=== PATIENT | male | born 1945 | race Caucasian/White ===

== ENCOUNTER 2017-08-23 14:30 | Inpatient (IN) | payer MEDICARE ==
[~2017-08-23] VITALS: Ht 167.6 cm; Wt 98.1 kg
--- NOTE | ~2017-08-23 | CON ---
[place], [place] REPORT OF CONSULTATION NAME: KENDY KAYE UNIT #: [id number] ROOM: 517 DOCTOR: FINN ONEAL MD BIRTHDATE: [birth year] DOS: 08/23/2017 HISTORY OF PRESENT ILLNESS: This is a 72-year-old -[place] man with a history of morbid obesity, coronary artery disease. I had deployed a stent in him in year 1999 at [facility]. Over the last many years, he has seen Dr. Lucas and I believe he has had a few stents deployed. He has some degree of dementia, diabetes mellitus, hyperlipidemia, essential hypertension, anemia and has had injury to the right shoulder from a fall a year ago. He was admitted to the hospital because of chest pain. He apparently has left shoulder pain that has bothered him for quite some time. This feeling radiates across the anterior part of the chest and it occurs infrequently and often at rest, sometimes with exertion. He claims that when he takes nitroglycerin sublingually, the feeling pretty much goes away. Duration is only in terms of 10-20 minutes. There is no accompanying sweating, nausea, breathing difficulty, dizziness or loss of consciousness. He has not had any swelling in the lower extremities. He quit smoking in the 1999, does not use alcoholic beverages. HOME MEDICATIONS: Include , clopidogrel, donepezil, insulin aspart and insulin glargine, Imdur 30 q.a.m., lisinopril 1.25 mg daily, Namenda 10 mg b.i.d., metoprolol tartrate 25 b.i.d., ranitidine 300 daily and venlafaxine 50 mg daily. PHYSICAL EXAMINATION: GENERAL: The patient is moderately obese. He is somewhat unkempt, looks little pale. He is not diaphoretic. He is not tachypneic. There is no thyromegaly or finger clubbing. VITAL SIGNS: Pulse is 88 regular, blood pressure 141/93. NECK: JVP is normal. There is no carotid bruit. HEART: There is no cardiomegaly, no murmurs are present. EXTREMITIES: There is no edema in lower extremities. Pedal pulses are palpable. RESPIRATORY: Breath sounds are mildly diminished with hardly any adventitious sounds. ABDOMEN: Large, supple, nontender. No bruit. Liver is not enlarged. Hemoglobin is 13.8 g/dL. Renal function is normal. Potassium 4.1. Troponin I is less than 0.024. IMPRESSION: This is a man with known coronary artery disease, has had chest pain for the last 1 year, which has not really intensified than usual. It seems somewhat atypical for myocardial ischemia. He has ruled out for myocardial infarction. Dr. Lucas has already ordered an echocardiogram for tomorrow morning and following that, he will advise further assessment and management of this patient. [place], [place] REPORT OF CONSULTATION NAME: KENDY KAYE UNIT #: [id number] ROOM: [facility] DOCTOR: FINN ONEAL MD BIRTHDATE: [birth year] I thank you on behalf of Dr. Lucas for this consult. FINN ONEAL MD CM:CONSTR:REPORT OF CONSULTATION 1829 08/24/17 0006 interface
[2017-08-23 14:30] VITALS: BP 133/87
[~2017-08-23 14:30] MED LIST: 'PARAFON FORTE500 M1 PO; ALLOPURINOL300 MG PO; ARICEPT10 MG PO; ARTIFICIAL TEA1 EACH OP; ARTIFICIAL TEAR15 M1 OP; ASPIRIN EC325 MG PO; ASPIRIN324 MG; ASPIRIN325 MG PO; ATIVAN0.5 MG PO; ATIVAN1 MG PO; ATORVASTATIN CA80 M1 PO; B-121000 MCG PO; BENZTROPINE ME0.5 MG PO; CAPSAICIN0.025% T; CITALOPRAM40 MG PO; CLOPIDOGREL75 MG; CRESTOR10 MG PO; CRESTOR40 MG PO; DAYPRO600 M1 PO; DONEPEZIL HYDRO10 M1 PO; DOXINATE PO; DUCUSATE PO; EFFEXOR XR150 M1 PO; EFFEXOR XR150 MG PO; GEODON20 M1 IM; HUMULIN N100 UNIT/1 SQ; HYDR1000 IM; HYDROCODONE BIT1 T11 PO; IMDUR ER30 MG PO; INSULIN-HUMA100 U/ML; ISOSORBIDE30 MG PO; KAO-TIN240 MG PO; LANTUS SOLOS100 U/M1 SC; LIQUID TEARS 1515 ML OU; LISINOPRIL2.5 MG PO; LOPRESSOR25 MG PO; LOXAPINE SUCCIN10 MG PO; MEMANTINE HCL10 MG PO; METFORMIN1000 MG PO; METHOCARBAMOL500 M1 PO; MIRALAX POWDER17 GM PO; MIRALAX17 GM PO; MIRALAX17 GM/DOSE PO; MIRALAX17 GM/PACK PO; NAPROXEN375 MG PO; NITROSTAT0.4 MG SL; NOVOLIN N100 U/ML SC; NOVOLOG FLEX100 U/ML SC; NOVOLOG100 U/ML SC; PLAVIX75 MG PO; PRAVACHOL80 M1 PO; QUETIAPINE FUMA25 MG PO; RANITIDINE HYD300 MG PO; RANITIDINE150 MG PO; SEROQUEL200 MG PO; SEROQUEL50 MG PO; VENLAFAXINE50 MG PO; VITAMIN D50000 I2 PO; ZANTAC 150150 MG PO; ZANTAC 300300 MG PO
[2017-08-23] MEDS ORDERED: ASPIRIN325 M2 PO (14:45)
[2017-08-23] MEDS ORDERED: LIPITOR40 MG PO (14:45)
[2017-08-23] MEDS ORDERED: LISINOPRIL2.5 MG PO (14:45)
[2017-08-23] MEDS ORDERED: KAOPECTATE240 M1 PO (14:46)
[2017-08-23] MEDS ORDERED: ALLOPURINOL300 MG PO (14:47)
[2017-08-23] MEDS ORDERED: TOUJEO SOL300 UNIT/1 SQ (14:47)
[2017-08-23] MEDS ORDERED: NOVOLOG100 UNIT/1 SQ (14:47)
[2017-08-23] MEDS ORDERED: POLYETHYLENE2500 GM PO (14:48)
[2017-08-23] MEDS ORDERED: PLAVIX75 M1 PO (14:49)
[2017-08-23] MEDS ORDERED: BUSPIRONE HCL10 MG PO (14:49)
[2017-08-23] MEDS ORDERED: NAMENDA10 MG PO (14:50)
[2017-08-23] MEDS ORDERED: IMDUR SA30 MG PO (14:50)
[2017-08-23] MEDS ORDERED: RANITIDINE HCL150 M1 PO (14:50)
[2017-08-23] MEDS ORDERED: Lopressor25 MG PO (14:50)
[2017-08-23] MEDS ORDERED: FLUTICASONE P15.8 ML NAS (14:52)
[2017-08-23] MEDS ORDERED: DONEPEZIL HCL10 MG PO (14:52)
[2017-08-23 14:53] LABS: BASO # 0.1 10*3/uL (0.0-0.1); EOS # 0.3 10*3/uL (0.0-0.4); EOS % 4.4 % (1.0-4.0); HEMATOCRIT 40.6 % (42.0-52.0); HEMOGLOBIN 13.8 g/dl (14.0-18.0); LYMPH # 3.1 10*3/uL (1.3-4.4); LYMPH % 39.1 % (27.0-41.0); MEAN CELL VOLUME 95.1 fl (80.0-94.0); MEAN CORPUSCULAR HGB 32.3 pg (27.0-31.0); MEAN PLATELET VOLUME 11.6 fl (9.6-12.3); MONO # 0.7 10*3/uL (0.1-1.0); MONO % 8.6 % (3.0-9.0); NEUT # 3.6 10*3/uL (2.3-7.9); NEUT % 46.3 % (47.0-73.0); PLATELET COUNT AUTOMATED 215 10*3/uL (130-400); RED BLOOD COUNT 4.27 10*6/uL (4.50-5.90); RED CELL DISTRI WIDTH 13.6 % (0-14.5); WHITE BLOOD COUNT 7.8 10*3/uL (4.8-10.8)
[2017-08-23] MEDS ORDERED: QUETIAPINE FUM100 M1 PO (14:53)
[2017-08-23] MEDS ORDERED: VENLAFAXINE HC100 MG PO (14:55)
[2017-08-23 15:06] LABS: ACT PARTIAL THROMBO TIME 24.7 SECONDS (20.8-31.5)
[2017-08-23 15:07] VITALS: BP 147/74
[2017-08-23 15:09] LABS: ALBUMIN 4.2 gm/dl (3.1-4.5); ALKALINE PHOSPHATASE 89 U/L (45-117); BUN 21 mg/dl (7-24); CHLORIDE 104 mmol/L (98-107); CREATININE 1.04 mg/dL (0.70-1.30); POTASSIUM 4.1 mmol/L (3.5-5.1); SGOT/AST 21 IU/L (3-35); SGPT/ALT 31 U/L (12-78); SODIUM 138 mmol/L (136-145); TOTAL PROTEIN 7.7 gm/dL (6.4-8.2)
[2017-08-23 15:10] LABS: TROPONIN I 0.027 ng/ml (<0.045)
[2017-08-23 16:00] VITALS: BP 141/98
--- NOTE | 2017-08-23 16:00 | NUR ---
A 72, admitted to , under the services of CAROLANN Martinez DO with a diagnosis of CHEST PAIN. Chief complaint is RIGHT SHOULDER AND CHEST PAIN. Patient arrived via stretcher from ER. Monitor applied. Initial assessment completed. Vital signs taken and recorded. CAROLANN MARTINEZ DO notified of admission to the unit. Orders received. See assessment for past medical history, medications and allergies. Patient and/or family oriented to unit. [facility] visitation policy reviewed. Clothing/patient valuable form completed. LUIS CARLOS BURGER
[2017-08-23 16:03] VITALS: BP 141/93
--- NOTE | 2017-08-23 17:00 | NUR ---
MED REC NOT VERIFIED AT THIS TIME. [facility] ATTEMPTED TO CALL TO VERIFY MEDS, BUT SHE HAD YOUNG GRANDKIDS THAT WERE YELLING AND PLAYING WITH PHONE SO I WAS UNABLE TO HEAR . ASK TO BRING IN MED BOTTLES OR A LIST. STATES SHE CAN BUT NOT UNTIL TOMORROW.
--- NOTE | 2017-08-23 17:02 | NUR ---
DR MAI NOTIFIED OF CONSULT. WANTS ECHO FOR AM. ALREADY ORDERED BY TORRES TRUONG.
[2017-08-23 20:00] VITALS: BP 158/84
--- NOTE | 2017-08-23 20:00 | NUR ---
IV FELL OUT WHEN PATIENT WENT TO BATHROOM. NEW 22G ANGIOCATH INSERTED INTO LEFT ARM ON 3 ATTEMPT WITHOUT DIFFICULTY. PATIENT TOLERATED WELL. GOOD BLOOD RETURN. HEP LOCK AT THIS TIME.
[2017-08-24] VITALS: BP 155/85
[2017-08-24 07:39] LABS: BASO # 0.1 10*3/uL (0.0-0.1); BASO % 0.7 % (0.0-1.0); EOS # 0.4 10*3/uL (0.0-0.4); EOS % 3.7 % (1.0-4.0); HEMATOCRIT 44.1 % (42.0-52.0); MEAN CELL VOLUME 96.1 fl (80.0-94.0); MEAN CORPUSCULAR HGB 32.7 pg (27.0-31.0); MEAN PLATELET VOLUME 11.9 fl (9.6-12.3); MONO # 0.8 10*3/uL (0.1-1.0); MONO % 7.2 % (3.0-9.0); NEUT # 6.4 10*3/uL (2.3-7.9); NEUT % 59.8 % (47.0-73.0); PLATELET COUNT AUTOMATED 238 10*3/uL (130-400); RED BLOOD COUNT 4.59 10*6/uL (4.50-5.90); RED CELL DISTRI WIDTH 13.7 % (0-14.5); WHITE BLOOD COUNT 10.7 10*3/uL (4.8-10.8)
[2017-08-24 08:00] VITALS: BP 125/90
[2017-08-24 08:06] LABS: ALBUMIN 4.2 gm/dl (3.1-4.5); BUN 20 mg/dl (7-24); CHLORIDE 101 mmol/L (98-107); POTASSIUM 4.7 mmol/L (3.5-5.1); SODIUM 139 mmol/L (136-145)
[2017-08-24 08:13] LABS: ALKALINE PHOSPHATASE 101 U/L (45-117); CHOLESTEROL 193 mg/dL (<200); CREATININE 1.15 mg/dL (0.70-1.30); FREE T4 0.72 ng/dl (0.76-1.46); HDL CHOLESTEROL 35 mg/dl (40-60); LDL CHOLESTEROL 93 mg/dL (9-159); PHOSPHOROUS 2.9 mg/dL (2.5-4.9); SGOT/AST 28 IU/L (3-35); SGPT/ALT 29 U/L (12-78); TOTAL PROTEIN 8.2 gm/dL (6.4-8.2); TRIGLYCERIDES 326 mg/dl (<150); VLDL CHOLESTEROL 65 mg/dL (6-40)
[2017-08-24 09:04] LABS: VITAMIN D, 25-HYDROXY 20.4 ng/mL (30-100)
--- NOTE | 2017-08-24 10:09 | NUR ---
PHYSICAL THERAPY PAtient evaluated on , full evaluation to follow. Continue with PT as per plan of care with fall, chronic AFO right LE, min (A), decreased safety and right shoulder and cervical pain precautions. Recommned SNF for ds/c planing, if refuses- home with family 03/04 as prior and complete home health services, ALSo recommend ortho versus neuro consult for cervical and right shoulder evaluation as well as (b) UE numbenss/tingling and weakness progressions. PAtient is high complexity via chart review, test and evaluation: 80025. Thank you for this referral. Joanne Waters,PT
--- NOTE | 2017-08-24 10:33 | NUR ---
Gis Scientist in to talk to patient. Patient states lives at home with his , daughter, son-in-law and grandchildren. There are a flight of steps in the home that he does not use. He only uses the first floor. Physician: Dr. Neil Taylor [facility]: [facility] Home health services: none Patient's level of ADLs: INDEPENDENT Patient has working utilities: yes DME: walker, cane Follow-up physician's appointment after d/c: will be made by hospitalist nurse director upon discharge Does patient want to access PORTAL?: no Discharge plan discussed with patient. He lives at home with , daughter, son-in-law, and grandchildren. He is independent in his ADLs and uses a walker/cane for ambulation. He request to stay here at the hospital and not be [facility] the [facility]. [facility] to the [facility] and billing here. He denies any needs or request at this time. When medically stable he will be discharged to home. NICK VALERO
--- NOTE | 2017-08-24 10:36 | NUR ---
Occupational Therapy evaluation completed this date on 5 with full eval to follow. PRecautions include fall risk,BUE shd pain, paraesthesias,burning pain finger tips radiating pain across chest and in neck, moderate complexity level 82987, tremors with MMT in BUE/BLEs. Recommend OT per POC and SNF upon d/c to maximize safety, functional mobility and safety. Thank you for this referral. Brianna Arias OTR/L
--- NOTE | 2017-08-24 10:38 | NUR ---
I HAVE TRIED 3 TIMES WITHOUT SUCCESS TO OBTAIN PTS CORRECT HOME MED LIST
[2017-08-24 12:00] VITALS: BP 130/89
[2017-08-24] MEDS ORDERED: NORCO 5-325 TA1 EACH PO (12:30)
--- NOTE | 2017-08-24 12:45 | NUR ---
STILL AWAITING MED LIST FROM DTR
[2017-08-24] MEDS ORDERED: VENLAFAXINE HY PO (15:08)
[2017-08-24] MEDS ORDERED: QUETIAPINE FUM100 M1 PO (15:09)
[2017-08-24] MEDS ORDERED: ZANTAC 150150 MG PO (15:12)
[2017-08-24] MEDS ORDERED: GLUCOPHAGE1000 MG PO (15:28)
--- NOTE | 2017-08-24 15:46 | NUR ---
finally able to get med list from mt, Dr Brown updated that echo is good per trae pt to be discharged to home
--- NOTE | 2017-08-24 16:00 | NUR ---
dc to home home care and meds discussed in details with dtr in law also follow up with ortho, stress testing
== END 2017-08-24 16:00 | disposition home or self-care (01) | DRG 206 ==
LOC: ED 14:30 → EDHOLD 14:52 → 5E 14:52
PROVIDERS: Emergency Medicine; Registered Nurse; ADMIT Internal Medicine
DX: M94.0 Chondrocostal junction syndrome [Tietze] (principal); E11.65 Type 2 diabetes mellitus with hyperglycemia; D64.9 Anemia, unspecified; M10.9 Gout, unspecified; R07.89 Other chest pain; F03.90 Unspecified dementia, unspecified severity, without behavioral disturbance, psychotic disturbance, mood disturbance, and anxiety; E78.2 Mixed hyperlipidemia; I10 Essential (primary) hypertension; Z95.5 Presence of coronary angioplasty implant and graft; Z87.81 Personal history of (healed) traumatic fracture; I25.2 Old myocardial infarction; Z87.891 Personal history of nicotine dependence; Z88.8 Allergy status to other drugs, medicaments and biological substances; Z79.82 Long term (current) use of aspirin; Z88.6 Allergy status to analgesic agent; Z79.4 Long term (current) use of insulin; Z80.49 Family history of malignant neoplasm of other genital organs; Z83.3 Family history of diabetes mellitus

== ENCOUNTER → 2017-08-29 | Outpatient (CLI) | payer MEDICARE, OTHER ==
[~2017-08-29] MED LIST changes: +ASPIRIN325 M2 PO; +BUSPIRONE HCL10 MG PO; +DONEPEZIL HCL10 MG PO; +FLUTICASONE P15.8 ML NAS; +GLUCOPHAGE1000 MG PO; +IMDUR SA30 MG PO; +KAOPECTATE240 M1 PO; +LIPITOR40 MG PO; +Lopressor25 MG PO; +NAMENDA10 MG PO; +NORCO 5-325 TA1 EACH PO; +NOVOLOG100 UNIT/1 SQ; +PLAVIX75 M1 PO; +POLYETHYLENE2500 GM PO; +QUETIAPINE FUM100 M1 PO; +RANITIDINE HCL150 M1 PO; +TOUJEO SOL300 UNIT/1 SQ; +VENLAFAXINE HC100 MG PO; +VENLAFAXINE HY PO
--- NOTE | ~2017-08-29 | ST ---
[place], [place] EXERCISE STRESS TEST REPORT NAME: KENDY KAYE UNIT #: [id number] ROOM: DOCTOR: AV MAI MD BIRTHDATE: [birth year] DOS: 08/29/2017 Lexiscan portion of the Lexiscan Cardiolite. Baseline cardiogram sinus rhythm with nonspecific ST-T changes, 0.4 mg Lexiscan, duration of 10 seconds. With Lexiscan, no new EKG changes. The patient had no chest discomfort, did have chest burning; however, no new EKG changes. Blood pressure and heart rate response was normal. FINAL IMPRESSION: No EKG changes with Lexiscan. Positive chest burning with Lexiscan. Blood pressure and heart rate response was normal. Nuclear images will be reported separately. AV MAI MD CM:STRESS:EXERCISE STRESS TEST REPORT [id number] AV MAI MD
--- NOTE | 2017-08-29 09:08 | NUR ---
INFORMED CONSENT SIGNED FOR LEXISCAN STRESS TEST WITH DR. MAI. RESTING EKG NSR, HR 81, BP 134/80. LUNGS CLEAR AND PULSE OX 96%. COMPLETED ONE MINUTE OF LEXISCAN PROTOCOL RECEIVING LEXISCAN 0.4MG OVER 10 SECONDS. NO ARRYTHMIAS OR ST CHANGES NOTED. PT C/O LIGHTHEADEDNESS AND BURNING IN CHEST. LAST RECOVERY HR 107, BP 130/78. WAITING NUCLEAR SCANNING IN STABLE CONDITION.
== END | disposition home or self-care (01) ==
LOC: CARD 01:44
DX: I21.9 Acute myocardial infarction, unspecified (principal); R07.89 Other chest pain; R07.2 Precordial pain

== ENCOUNTER → 2018-11-06 | Outpatient (CLI) | payer MEDICARE ==
[~2018-11-06] MED LIST changes: -ASPIRIN325 M2 PO; +Carafate1 GM PO; +DOCUSATE SODIU100 M2 PO; +ECOTRIN325 M1 PO; +ERGOCALCIFEROL PO; +ISORDIL20 MG PO; -LIPITOR40 MG PO; +LIPITOR80 MG PO; +LITHIUM CARBON150 MG PO; +NEURONTIN300 MG PO; +PROTONIX40 MG PO; +REGLAN5 MG PO; +ROBAXIN500 M1 PO; +VITAMIN D32000 UNI1 PO; +ZESTRIL2.5 MG PO
--- NOTE | ~2018-11-06 | ST ---
[place], [place] EXERCISE STRESS TEST REPORT NAME: KENDY KAYE UNIT #: [id number] ROOM: DOCTOR: AV MAI MD BIRTHDATE: [birth year] DOS: 11/06/2018 LEXISCAN PORTION OF THE LEXISCAN CARDIOLITE Baseline cardiogram, sinus rhythm with Lexiscan, no new EKG changes. Her blood pressure and heart rate response was normal. FINAL IMPRESSION: The patient is slightly lightheaded. No new EKG changes. No chest pain. Nuclear images will be reported separately. AV MAI MD CM:STRESS:EXERCISE STRESS TEST REPORT [id number] AV MAI MD
--- NOTE | 2018-11-06 07:45 | NUR ---
INFORMED CONSENT OBTAINED FOR LEXISCAN NUCLEAR STRESS TEST WITH DR. MAI. RESTING EKG NSR WITH A RESTING HR OF 80 WITH BP OF 118/72. LUNGS DIMINISHED BS WITH SPO2 OF 96% ON ROOM AIR. PT COMPLETED A 1:00 LEXISCAN PROTOCOL RECEIVING LEXISCAN 0.4 MG IV OVER 10 SECONDS. HAD NO CHEST PAIN OR ANY EKG CHANGES. DID C/O LIGHTHEADEDNESS THAT WAS RELIEVED IN RECOVERY. HAD A PEAK HR OF 102 WITH BP OF 110/64. LAST RECOVERY HR OF 98 WITH BP OF 122/62. AWAITING SCANNING IN STABLE CONDITION.
== END | disposition home or self-care (01) ==
LOC: CARD 01:14
DX: I20.9 Angina pectoris, unspecified (principal)

== ENCOUNTER 2019-02-12 10:15 | Inpatient (IN) | payer MEDICARE ==
[~2019-02-12] VITALS: Ht 167.6 cm; Wt 99.9 kg
[2019-02-12] VITALS (7 sets, daily range): BP systolic 107–128; BP diastolic 56–92
--- NOTE | ~2019-02-12 | O ---
[place], [place] OPERATIVE NOTE NAME: KENDY KAYE UNIT #: [id number] ROOM: 508 DOCTOR: BRUCE POOL MD BIRTHDATE: [birth year] DOS: 02/13/2019 GASTROENDOSCOPIC REPORT INDICATIONS: The patient is a 73-year-old who has presented with a chief complaint of hematemesis. The patient has been admitted with a drop in H and H, initial H and H also been anemic indices of 10 and 31. This has dropped this morning after 24 hours to [address] scan of the abdomen has been obtained and multiple areas of thickness in the gastric pouch was reported per details in chart. PROCEDURE: Today's procedure part of investigation is panendoscopy plus biopsies. PREMEDICATION: Propofol. SCOPE: Olympus forward-viewing gastroscope Q10 video. REPORT: After putting the patient in left lateral position and application of lubricant to the scope, the scope was introduced. Thereafter, under direct visualization, I advanced through the length of esophagus into gastric pouch. Small hiatal hernia was noticed. Gastric pouch is full of gastric blood and debris, however, beneath the existing problem which obscures a visualization to approximately 80% reduction in details, multi-large ulcers with raised lips at mid gastric towards the pyloric ring, each one independent with the center of greater being impacted with black charcoal clot. They run towards the antrum as underlying fresh clot as well. Margin of the proximal ulcer was biopsied, which is up to mid gastric pouch to rule out carcinoma. Pyloric ring open. The patient extubated, tolerated the procedure well. IMPRESSION AND PLAN: Multi-gastric giant ulcer with raised lip and clot at the center. These are occupying the gastric pouch lower 50%. From mid greater curvature to the antrum to proximity of pyloric ring, all occupied with ulcerations. These ulcers are deep raised lip at the borders, simulating carcinoma. However, possibility of benignity of the pathology has to be in concern and if came back negative, rebiopsy recommended. At the present time in order to control the situation and oozing of further blood, we are going to keep him on Sandostatin drip as ordered 50 mcg loading 25 mcg per hour continues. Ice chips only. Protonix 40 mg IV b.i.d., sucralfate 2 grams q.i.d. Follow up on H and H, transfusion, all in progress. Awaiting biopsies. This gentleman may end up needing near total gastrectomy and so far decision making in progress. Plavix and aspirin are on hold as we recognize this patient's CAD, six stents, and AR. We will hold on the Plavix and aspirin until cardiac evaluations. [place], [place] OPERATIVE NOTE NAME: KENDY KAYE UNIT #: [id number] ROOM: 508 DOCTOR: BRUCE POOL MD BIRTHDATE: [birth year] BRUCE POOL MD CM:OPRECORD:OPERATIVE NOTE 1200 [id number] BRUCE POOL MD 02/20/19 0744 interface
--- NOTE | ~2019-02-12 | PR ---
[place], [place] PROGRESS NOTE NAME: KENDY KAYE UNIT #: [id number] ROOM: 508 DOCTOR: BRUCE POOL MD BIRTHDATE: [birth year] DOS: 02/20/2019 SUBJECTIVE: A 73-year-old patient who is presenting with multi giant gastric ulcers at least 4-5 cm in its diameters each one of them lesser and greater curvature. His ulcers appeared to be very aggressive and there was concern about carcinoma, second session of endoscopy was done after aggressive double ulcer therapy, double medication and ulcers appear to be responding significantly to the aggressive therapy and sucralfate and Protonix. Multiple biopsies were taken and sent out for ruling out definitively dysplastic cells. The patient has been able to have a soft diet now, the patient is to continue with PPI and Carafate therapy as outpatient and we are going to organize evaluation of the ulcers in 2 months in case biopsies are going to be of any concern. The patient was advised to abstain from nonsteroidal anti-inflammatory REVIEW OF SYSTEMS: HEENT: Denies double vision, blurred vision. RESPIRATORY: Denies shortness of breath. CARDIOVASCULAR: No chest pain. DIGESTIVE SYSTEM: No hematemesis, multi ulcers. PHYSICAL EXAMINATION: VITAL SIGNS: Stable. HEENT: Benign. NECK: Supple, no thyromegaly. CHEST: Symmetric anatomy. HEART: Normal sinus rhythm, no gallop, no murmur. ABDOMEN: Soft. No hepato-organomegaly, obese. Bowel sounds present. EXTREMITIES: Benign. NEUROLOGIC: Alert. LABORATORY DATA: Reviewed. Records reviewed. H and H of 9 and 29 with platelet of 230 was noticed and chemistry, GFR greater than 60 and potassium 3.1. Potassium has been supplemented by the RN before discharge is 40 mEq done. PLAN AND DISCUSSION: Advice has been given for future potassium. Otherwise Protonix and Carafate therapy to continue. Two months panendoscopic evaluation, ruling out healing of the ulcer is entirely. Clinical reassessment. [place], [place] PROGRESS NOTE NAME: KENDY KAYE UNIT #: [id number] ROOM: 508 DOCTOR: BRUCE POOL MD BIRTHDATE: [birth year] BRUCE POOL MD CM:CHIDI [id number] BRUCE POOL MD 03/20/19 0717 interface
--- NOTE | ~2019-02-12 | O ---
[place], [place] OPERATIVE NOTE NAME: KENDY KAYE UNIT #: [id number] ROOM: 508 DOCTOR: BRUCE POOL MD BIRTHDATE: [birth year] DOS: 02/18/2019 HISTORY OF PRESENT ILLNESS: The patient is a 73-year-old who has apparently been taking large volume nonsteroidal anti-inflammatory with previous endoscopic evaluation a week ago of multi-giant gastric ulcers, which practically occupies lesser and greater curvature up to the antrum, massive size of 5 cm x 4 cm, at least diameters. Previous multiple biopsies showed no carcinoma cells. He has been on aggressive therapy with Protonix double dose and we are obligated to rebiopsy since we do not have definitive commitment as far as pathology is concerned. PROCEDURE: Today's procedure part of investigation is panendoscopy plus biopsy. PREMEDICATION: Propofol. SCOPE: Olympus forward-viewing gastroscope Q10 video. REPORT: After putting the patient in left lateral position and application of lubricant to the scope, the scope was introduced. Thereafter, under direct visualization, advanced through the length of esophagus without difficulty. Gastric pouch was entered. Large volume of semi-liquid Chyme was suctioned out, ulcerations exposed. There were massive in size; however, the depth of penetration was much less and less aggressive. There was no gross blood in the stomach. Multiple biopsies from margin of both ulcers were obtained. Photographic series obtained. Duodenal bulb, second and third part inspected. Air was suctioned out. The patient was extubated, tolerated the procedure well. IMPRESSION: Improving giant gastric ulcers status. We are going to continue with Protonix 40 mg IV b.i.d. We are going to continue with sucralfate slurry 2 hours before meals and at bedtime. We are going to advance him to soft diet. We are going to stop Sandostatin drip while the present supply finished. We are going to add Reglan 5 mg to the diet because of retention of fluid in the stomach, which may be resolved in future once the ulcers therapy would be completed. [place], [place] OPERATIVE NOTE NAME: KENDY KAYE UNIT #: [id number] ROOM: 508 DOCTOR: BRUEC POOL MD BIRTHDATE: [birth year] BRUCE POOL MD CM:CAMERONORD:OPERATIVE NOTE 1857 32 BRUCE POOL MD 02/18/195 interface
--- NOTE | ~2019-02-12 | PR ---
[place], [place] PROGRESS NOTE NAME: KENDY KAYE UNIT #: [id number] ROOM: 508 DOCTOR: BRUCE POOL MD BIRTHDATE: [birth year] DOS: 02/15/2019 GASTROENDOSCOPIC PROGRESS REPORT SUBJECTIVE: The patient has presented with multi large giant ulcers in the gastric pouch, suspected for carcinoma. Unfortunately, pathology report has not been committing, just atypical cells has been reported. He has been holding his H and H at 9 and 29. He has been n.p.o. in preventing his recurrent GI bleed. He is on aggressive ulcer therapy with Protonix 40 mg b.i.d. and sucralfate q.i.d. double dose. We are going to increase the diet tonight to Ensure q.i.d., Magic Cup t.i.d. and full liquid diet and rescheduling him for reassessment since I do not have a definitive report. REVIEW OF SYSTEMS: HEENT: Denies double vision, blurred vision. RESPIRATORY: Denies shortness of breath; however, chronically short of breath. CARDIOVASCULAR: Denies chest pain. DIGESTIVE SYSTEM: Multi giant gastric ulcers. PHYSICAL EXAMINATION: VITAL SIGNS: Stable. HEENT: Benign. NECK: Supple, no thyromegaly. CHEST: Symmetric anatomy, COPD. HEART: Normal sinus rhythm, no gallop, no murmur. ABDOMEN: Soft. No hepato-organomegaly. Bowel sounds present, obese. EXTREMITIES: No cyanosis, no pedal edema. NEUROLOGIC: Alert and oriented to time, place, and person. LABORATORY DATA: Reviewed. Records reviewed. IMPRESSION: Multi gastric ulcers, suspected for carcinoma. Awaiting biopsy report except report of atypia that we knew. Ulcer therapy in progress. If no definitive addendum from pathology, we are going to rebiopsy him on Monday after 1 week of aggressive ulcer therapy. [place], [place] PROGRESS NOTE NAME: KENDY KAYE UNIT #: [id number] ROOM: 508 DOCTOR: BRUCE POOL MD BIRTHDATE: [birth year] BRUCE POOL MD CM:CHIDI [id number] BRUCE POOL MD 03/20/19 0716 interface
--- NOTE | ~2019-02-12 | EKG ---
[place], [place] ELECTROCARDIOGRAM REPORT NAME: KENDY KAYE UNIT #: [id number] ROOM: [facility] DOCTOR: SAGAR DRAFT REPORT BIRTHDATE: [birth year] [facility] Test Date: 2019-02-12 Test Time: 10:58:57 Pat Name: KENDY KAYE Department: Room: [facility] Gender: M [employer] Team Member: : 1945 Requested By: DONNIE MERINO DNP Order Number: [id number] Reading MD: Yan Lucas MD Measurements Intervals [place] Rate: 82 P: 45 CA: 169 QRS: -37 QRSD: 88 T: 60 QT: 392 QTc: 458 Interpretive Statements Pacemaker spikes or artifacts Sinus rhythm Inferior infarct, old Electronically Signed On 02-14-2019 7:34:47 PDT by Yan Lucas MD CM:EKGRPT:ELECTROCARDIOGRAM REPORT [id number] 0734 DONNIE SANTIAGOANY DRAFT REPORT DONNIE MERINO DNP
--- NOTE | ~2019-02-12 | CON ---
[place], [place] REPORT OF CONSULTATION NAME: KENDY KAYE UNIT #: [id number] ROOM: [facility] DOCTOR: BRUCE POOL MD BIRTHDATE: [birth year] DOS: 02/13/2019 GASTROENDOSCOPIC CONSULTATION REPORT HISTORY OF PRESENT ILLNESS: A 73-year-old who has presented with a chief complaint of hematemesis. The patient at the time of admission had H and H of 10 and 31 with white blood cell of 18,000. His INR was 0.9. His comprehensive metabolic panel was within normal limits. Troponin was within normal limit. Lactic acid 3.6. Chest x-ray was obtained for his cough and cold and chronic changes were noticed. CT scan of the abdomen and pelvis done, abnormal appearing distal body antrum and pylorus of the stomach associated thickening concerning for potential large intraluminal mass. Endoscopy was recommended. Lactic acid remains around the same area. Hemoglobin A1c 8. His H and H drops to 8 and 25. PAST MEDICAL HISTORY: Associated with obesity, depression, diabetes, reflux, gout, coronary artery disease, anxiety, hyperlipidemia, systemic hypertension. PAST SURGICAL HISTORY: Cardiac catheterization, coronary artery stents. SOCIAL HISTORY: Passive smoker. Nonalcohol consumer. FAMILY HISTORY: Noncontributory. ALLERGIES: SIMVASTATIN. MEDICATIONS: List including aspirin and Advil products according to the for neck and back pain is used by him. He is on the other hand on ranitidine amongst many other medications that reviewed. REVIEW OF SYSTEMS: HEENT: Denies double vision, blurred vision. RESPIRATORY: Admits to shortness of breath. CARDIOVASCULAR: No chest pain. DIGESTIVE SYSTEM: Hematemesis. PHYSICAL EXAMINATION: VITAL SIGNS: Stable. HEENT: Within normal limits. NECK: Supple, no thyromegaly, no cervical lymphadenopathy. CHEST: Symmetric anatomy, equal expansion. Decreased air entry bilaterally. HEART: Normal sinus rhythm, no gallop, no murmur. ABDOMEN: Soft. No hepato-organomegaly. Bowel sounds present. Obese. No rebound tenderness. EXTREMITIES: No cyanosis, no pedal edema. NEUROLOGIC: Alert, oriented to time, place, person. IMPRESSION: Drop in H and H, hematemesis, abnormal CT scan of the abdomen, suspected mass in the gastric pouch. All has been recognized. [place], [place] REPORT OF CONSULTATION NAME: KENDY KAYE UNIT #: [id number] ROOM: [facility] DOCTOR: YRN FOLEY,BRUCE BIRTHDATE: [birth year] OTHER ADJUNCTIVE DIAGNOSES: As outlined in paragraph of past medical, surgical history. I am going to proceed with endoscopic assessment on biopsy of the point of concern. BRUCE POOL MD CM:CONSTR:REPORT OF CONSULTATION 1132 02/14/19 0437 interface
[~2019-02-12 10:15] MED LIST changes: -Carafate1 GM PO; -DOCUSATE SODIU100 M2 PO; -ISORDIL20 MG PO; -LITHIUM CARBON150 MG PO; -NEURONTIN300 MG PO; -PROTONIX40 MG PO; -REGLAN5 MG PO; -VITAMIN D32000 UNI1 PO
[2019-02-12 11:09] LABS: BASO # 0.1 10*3/uL (0.0-0.1); BASO % 0.5 % (0.0-1.0); EOS # 0.3 10*3/uL (0.0-0.4); EOS % 1.7 % (1.0-4.0); HEMATOCRIT 31.7 % (42.0-52.0); HEMOGLOBIN 10.2 g/dl (14.0-18.0); LYMPH # 2.9 10*3/uL (1.3-4.4); LYMPH % 16.2 % (27.0-41.0); MEAN CELL VOLUME 99.1 fl (80.0-94.0); MEAN CORPUSCULAR HGB 31.9 pg (27.0-31.0); MEAN CORPUSCULAR HGB CONC 32.2 g/dl (33.0-37.0); MEAN PLATELET VOLUME 11.9 fl (9.6-12.3); MONO % 5.4 % (3.0-9.0); NEUT # 13.6 10*3/uL (2.3-7.9); PLATELET COUNT AUTOMATED 210 10*3/uL (130-400); RED CELL DISTRI WIDTH 14.3 % (0-14.5); WHITE BLOOD COUNT 18.1 10*3/uL (4.8-10.8)
[2019-02-12 11:20] LABS: ACT PARTIAL THROMBO TIME 23.1 SECONDS (20.0-32.1); INTERNATIONAL NORM RATIO 0.9 (2.0-3.5)
[2019-02-12 11:26] LABS: ALBUMIN 3.4 gm/dl (3.1-4.5); ALKALINE PHOSPHATASE 88 U/L (45-117); BUN 32 mg/dl (7-24); CHLORIDE 105 mmol/L (98-107); CREATININE 1.19 mg/dL (0.70-1.30); LIPASE 95 U/L (73-393); POTASSIUM 5.1 mmol/L (3.5-5.1); SGOT/AST 12 IU/L (3-35); SGPT/ALT 17 U/L (12-78); SODIUM 138 mmol/L (136-145); TOTAL PROTEIN 6.7 gm/dL (6.4-8.2); TROPONIN I < 0.015 ng/ml (<0.045)
[2019-02-12 13:19] LABS: BILIRUBIN NEGATIVE (NEGATIVE); BLOOD NEGATIVE (NEGATIVE); CLARITY CLEAR (CLEAR); COLOR YELLOW (YELLOW); GLUCOSE 2+ (NEGATIVE); KETONE NEGATIVE (NEGATIVE); LEUKO ESTERASE NEGATIVE (NEGATIVE); NITRITE NEGATIVE (NEGATIVE); UROBILINOGEN 0.2 E.U./dl (0.2-1.0)
[2019-02-12 13:40] LABS: MUCOUS 1+; RBC 0-2 rbc/hpf (0-2); WBC 0-2 wbc/hpf (0-5)
[2019-02-12] MEDS ORDERED: DOCUSATE SODIU100 M2 PO (15:35)
[2019-02-12] MEDS ORDERED: PLAVIX75 M1 PO (15:36)
[2019-02-12] MEDS ORDERED: VITAMIN D32000 UNI1 PO (15:36)
[2019-02-13] VITALS (12 sets, daily range): BP systolic 102–148; BP diastolic 46–119
[2019-02-13 07:06] LABS: BUN 34 mg/dl (7-24); CHLORIDE 107 mmol/L (98-107); CHOLESTEROL 95 mg/dL (<200); CREATININE 1.04 mg/dL (0.70-1.30); PHOSPHOROUS 2.5 mg/dL (2.5-4.9); POTASSIUM 4.2 mmol/L (3.5-5.1); SODIUM 141 mmol/L (136-145); TRIGLYCERIDES 209 mg/dl (<150); VLDL CHOLESTEROL 42 mg/dL (6-40)
[2019-02-13 07:14] LABS: BASO # 0.1 10*3/uL (0.0-0.1); BASO % 0.4 % (0.0-1.0); EOS # 0.3 10*3/uL (0.0-0.4); EOS % 2.1 % (1.0-4.0); HEMOGLOBIN 8.2 g/dl (14.0-18.0); LYMPH # 2.4 10*3/uL (1.3-4.4); LYMPH % 18.8 % (27.0-41.0); MEAN CELL VOLUME 99.6 fl (80.0-94.0); MEAN CORPUSCULAR HGB 32.2 pg (27.0-31.0); MEAN CORPUSCULAR HGB CONC 32.3 g/dl (33.0-37.0); MEAN PLATELET VOLUME 12.6 fl (9.6-12.3); MONO # 0.8 10*3/uL (0.1-1.0); MONO % 6.5 % (3.0-9.0); NEUT % 71.2 % (47.0-73.0); PLATELET COUNT AUTOMATED 182 10*3/uL (130-400); RED BLOOD COUNT 2.55 10*6/uL (4.50-5.90); RED CELL DISTRI WIDTH 14.3 % (0-14.5); WHITE BLOOD COUNT 12.6 10*3/uL (4.8-10.8)
[2019-02-13 07:15] LABS: FREE T4 0.58 ng/dl (0.76-1.46); HDL CHOLESTEROL 32 mg/dl (40-60); LDL CHOLESTEROL 21 mg/dL (9-159)
[2019-02-13 07:18] LABS: HEMATOCRIT 25.4 % (42.0-52.0)
[2019-02-13] MEDS ORDERED: LITHIUM CARBON150 MG PO ×2 (15:20→16:13)
[2019-02-13] MEDS ORDERED: NEURONTIN300 MG PO (16:07)
[2019-02-14] VITALS: BP 123/72
[2019-02-14 04:00] VITALS: BP 120/70
[2019-02-14 06:20] LABS: BASO # 0.1 10*3/uL (0.0-0.1); BASO % 0.6 % (0.0-1.0); EOS # 0.4 10*3/uL (0.0-0.4); EOS % 3.1 % (1.0-4.0); HEMOGLOBIN 8.7 g/dl (14.0-18.0); LYMPH # 2.4 10*3/uL (1.3-4.4); LYMPH % 18.2 % (27.0-41.0); MEAN CELL VOLUME 97.5 fl (80.0-94.0); MEAN CORPUSCULAR HGB 31.4 pg (27.0-31.0); MEAN CORPUSCULAR HGB CONC 32.2 g/dl (33.0-37.0); MEAN PLATELET VOLUME 12.6 fl (9.6-12.3); MONO # 0.9 10*3/uL (0.1-1.0); NEUT # 9.1 10*3/uL (2.3-7.9); NUCLEATED RED BLOOD CELL 0.2 % (0.0-0.0); PLATELET COUNT AUTOMATED 179 10*3/uL (130-400); RED BLOOD COUNT 2.77 10*6/uL (4.50-5.90); RED CELL DISTRI WIDTH 15.3 % (0-14.5)
[2019-02-14 08:00] VITALS: BP 125/51
[2019-02-14 11:41] VITALS: BP 98/62
[2019-02-14 16:00] VITALS: BP 107/62
[2019-02-14 20:00] VITALS: BP 99/44
[2019-02-15] VITALS: BP 98/56
[2019-02-15 04:00] VITALS: BP 103/49
[2019-02-15 06:23] LABS: BASO # 0.1 10*3/uL (0.0-0.1); BASO % 0.9 % (0.0-1.0); EOS # 0.4 10*3/uL (0.0-0.4); EOS % 3.9 % (1.0-4.0); HEMATOCRIT 29.5 % (42.0-52.0); HEMOGLOBIN 9.5 g/dl (14.0-18.0); LYMPH # 2.1 10*3/uL (1.3-4.4); MEAN CORPUSCULAR HGB 31.9 pg (27.0-31.0); MEAN CORPUSCULAR HGB CONC 32.2 g/dl (33.0-37.0); MEAN PLATELET VOLUME 12.2 fl (9.6-12.3); MONO # 0.9 10*3/uL (0.1-1.0); MONO % 8.3 % (3.0-9.0); NEUT # 7.4 10*3/uL (2.3-7.9); NUCLEATED RED BLOOD CELL 0.3 % (0.0-0.0); PLATELET COUNT AUTOMATED 193 10*3/uL (130-400); RED BLOOD COUNT 2.98 10*6/uL (4.50-5.90); RED CELL DISTRI WIDTH 15.1 % (0-14.5)
[2019-02-15 08:00] VITALS: BP 107/50
[2019-02-15 12:00] VITALS: BP 106/72
[2019-02-15 16:00] VITALS: BP 98/60
[2019-02-15 20:00] VITALS: BP 97/54
[2019-02-16] VITALS: BP 101/48
[2019-02-16 06:26] LABS: BASO # 0.1 10*3/uL (0.0-0.1); BASO % 0.6 % (0.0-1.0); EOS # 0.3 10*3/uL (0.0-0.4); EOS % 3.4 % (1.0-4.0); HEMATOCRIT 28.5 % (42.0-52.0); HEMOGLOBIN 9.2 g/dl (14.0-18.0); LYMPH # 2.2 10*3/uL (1.3-4.4); LYMPH % 22.6 % (27.0-41.0); MEAN CELL VOLUME 99.7 fl (80.0-94.0); MEAN CORPUSCULAR HGB 32.2 pg (27.0-31.0); MEAN CORPUSCULAR HGB CONC 32.3 g/dl (33.0-37.0); MEAN PLATELET VOLUME 12.1 fl (9.6-12.3); MONO # 0.9 10*3/uL (0.1-1.0); MONO % 8.6 % (3.0-9.0); NEUT # 6.3 10*3/uL (2.3-7.9); NEUT % 63.4 % (47.0-73.0); NUCLEATED RED BLOOD CELL 0.2 % (0.0-0.0); PLATELET COUNT AUTOMATED 206 10*3/uL (130-400); RED BLOOD COUNT 2.86 10*6/uL (4.50-5.90); RED CELL DISTRI WIDTH 15.2 % (0-14.5); WHITE BLOOD COUNT 9.9 10*3/uL (4.8-10.8)
[2019-02-16 08:00] VITALS: BP 120/74
[2019-02-16 12:00] VITALS: BP 104/54
[2019-02-16 16:00] VITALS: BP 96/55
[2019-02-16 16:46] LABS: BASO % 0.3 % (0.0-1.0); EOS # 0.2 10*3/uL (0.0-0.4); EOS % 1.6 % (1.0-4.0); HEMATOCRIT 27.6 % (42.0-52.0); HEMOGLOBIN 8.9 g/dl (14.0-18.0); LYMPH # 1.1 10*3/uL (1.3-4.4); LYMPH % 12.2 % (27.0-41.0); MEAN CORPUSCULAR HGB 32.2 pg (27.0-31.0); MEAN CORPUSCULAR HGB CONC 32.2 g/dl (33.0-37.0); MEAN PLATELET VOLUME 11.1 fl (9.6-12.3); MONO # 0.6 10*3/uL (0.1-1.0); NEUT # 7.1 10*3/uL (2.3-7.9); NEUT % 77.6 % (47.0-73.0); NUCLEATED RED BLOOD CELL 0.2 % (0.0-0.0); PLATELET COUNT AUTOMATED 211 10*3/uL (130-400); RED BLOOD COUNT 2.76 10*6/uL (4.50-5.90); RED CELL DISTRI WIDTH 15.2 % (0-14.5); WHITE BLOOD COUNT 9.2 10*3/uL (4.8-10.8)
[2019-02-16 17:13] LABS: CREATININE 1.42 mg/dL (0.70-1.30); POTASSIUM 3.6 mmol/L (3.5-5.1)
[2019-02-16 20:00] VITALS: BP 94/52
[2019-02-17] VITALS: BP 101/54
[2019-02-17 06:18] LABS: BASO % 0.4 % (0.0-1.0); EOS # 0.3 10*3/uL (0.0-0.4); EOS % 4.1 % (1.0-4.0); HEMATOCRIT 26.7 % (42.0-52.0); HEMOGLOBIN 8.5 g/dl (14.0-18.0); LYMPH # 2.3 10*3/uL (1.3-4.4); LYMPH % 28.5 % (27.0-41.0); MEAN CELL VOLUME 98.9 fl (80.0-94.0); MEAN CORPUSCULAR HGB 31.5 pg (27.0-31.0); MEAN CORPUSCULAR HGB CONC 31.8 g/dl (33.0-37.0); MEAN PLATELET VOLUME 12.3 fl (9.6-12.3); MONO # 0.6 10*3/uL (0.1-1.0); MONO % 7.1 % (3.0-9.0); NEUT # 4.7 10*3/uL (2.3-7.9); NEUT % 58.9 % (47.0-73.0); PLATELET COUNT AUTOMATED 211 10*3/uL (130-400); RED CELL DISTRI WIDTH 15.3 % (0-14.5)
[2019-02-17 06:37] LABS: BUN 25 mg/dl (7-24); CHLORIDE 106 mmol/L (98-107); CREATININE 1.18 mg/dL (0.70-1.30); POTASSIUM 3.4 mmol/L (3.5-5.1); SODIUM 140 mmol/L (136-145)
[2019-02-17 08:00] VITALS: BP 112/56
[2019-02-17 12:00] VITALS: BP 108/68; BP 128/80
[2019-02-17 16:00] VITALS: BP 117/80
[2019-02-17 20:00] VITALS: BP 117/55
[2019-02-18] VITALS (8 sets, daily range): BP systolic 118–136; BP diastolic 49–114
[2019-02-18 06:26] LABS: BASO % 0.5 % (0.0-1.0); EOS # 0.5 10*3/uL (0.0-0.4); EOS % 5.5 % (1.0-4.0); HEMOGLOBIN 8.7 g/dl (14.0-18.0); LYMPH # 2.9 10*3/uL (1.3-4.4); LYMPH % 33.4 % (27.0-41.0); MEAN CELL VOLUME 99.3 fl (80.0-94.0); MEAN CORPUSCULAR HGB 30.9 pg (27.0-31.0); MEAN CORPUSCULAR HGB CONC 31.1 g/dl (33.0-37.0); MEAN PLATELET VOLUME 11.7 fl (9.6-12.3); MONO # 0.7 10*3/uL (0.1-1.0); MONO % 8.2 % (3.0-9.0); NEUT # 4.6 10*3/uL (2.3-7.9); NEUT % 51.8 % (47.0-73.0); NUCLEATED RED BLOOD CELL 0.2 % (0.0-0.0); PLATELET COUNT AUTOMATED 217 10*3/uL (130-400); RED BLOOD COUNT 2.82 10*6/uL (4.50-5.90); RED CELL DISTRI WIDTH 15.4 % (0-14.5); WHITE BLOOD COUNT 8.8 10*3/uL (4.8-10.8)
[2019-02-18 06:45] LABS: BUN 18 mg/dl (7-24); CHLORIDE 111 mmol/L (98-107); CREATININE 1.21 mg/dL (0.70-1.30); POTASSIUM 3.4 mmol/L (3.5-5.1); SODIUM 143 mmol/L (136-145)
[2019-02-19] VITALS: BP 111/49
[2019-02-19 08:00] VITALS: BP 111/61
[2019-02-19 12:00] VITALS: BP 125/61
[2019-02-19 16:00] VITALS: BP 108/54
[2019-02-19 20:00] VITALS: BP 118/61
[2019-02-20] VITALS: BP 116/66
[2019-02-20 08:00] VITALS: BP 121/58
[2019-02-20 09:54] LABS: BASO # 0.1 10*3/uL (0.0-0.1); BASO % 0.5 % (0.0-1.0); EOS # 0.5 10*3/uL (0.0-0.4); EOS % 4.9 % (1.0-4.0); HEMATOCRIT 29.1 % (42.0-52.0); HEMOGLOBIN 9.2 g/dl (14.0-18.0); LYMPH # 2.9 10*3/uL (1.3-4.4); LYMPH % 28.7 % (27.0-41.0); MEAN CORPUSCULAR HGB 31.3 pg (27.0-31.0); MEAN CORPUSCULAR HGB CONC 31.6 g/dl (33.0-37.0); MEAN PLATELET VOLUME 11.2 fl (9.6-12.3); MONO # 0.7 10*3/uL (0.1-1.0); MONO % 7.2 % (3.0-9.0); NEUT # 5.8 10*3/uL (2.3-7.9); NEUT % 57.1 % (47.0-73.0); NUCLEATED RED BLOOD CELL 0.2 % (0.0-0.0); PLATELET COUNT AUTOMATED 232 10*3/uL (130-400); RED BLOOD COUNT 2.94 10*6/uL (4.50-5.90); RED CELL DISTRI WIDTH 15.4 % (0-14.5); WHITE BLOOD COUNT 10.1 10*3/uL (4.8-10.8)
[2019-02-20 10:18] LABS: BUN 9 mg/dl (7-24); CHLORIDE 107 mmol/L (98-107); POTASSIUM 3.1 mmol/L (3.5-5.1); SODIUM 143 mmol/L (136-145)
[2019-02-20 12:00] VITALS: BP 131/64
[2019-02-20] MEDS ORDERED: PROTONIX40 MG PO (12:59)
[2019-02-20] MEDS ORDERED: Carafate1 GM PO (12:59)
[2019-02-20] MEDS ORDERED: REGLAN5 MG PO (13:02)
[2019-04-09] MEDS ORDERED: ISORDIL20 MG PO (16:11)
== END 2019-02-20 15:39 | disposition home or self-care (01) | DRG 378 ==
LOC: ED 10:15 → EDHOLD 13:22 → 5E 13:22 → ICCU 13:22 → 5E 14:31 → ICCU 02-13 13:00 → 5E 02-15 21:28
PROVIDERS: Internal Medicine; Nurse Practitioner Family; ADMIT Internal Medicine
PROC: 30233N1 Transfusion of Nonautologous Red Blood Cells into Peripheral Vein, Percutaneous Approach (ICD-10-PCS; principal; 2019-02-13)
PROC: 0DB68ZX Excision of Stomach, Via Natural or Artificial Opening Endoscopic, Diagnostic (ICD-10-PCS; principal; 2019-02-13)
PROC: 0DB68ZX Excision of Stomach, Via Natural or Artificial Opening Endoscopic, Diagnostic (ICD-10-PCS; 2019-02-18)
DX: K25.4 Chronic or unspecified gastric ulcer with hemorrhage (principal); E87.2 Acidosis; R19.09 Other intra-abdominal and pelvic swelling, mass and lump; D72.829 Elevated white blood cell count, unspecified; D53.9 Nutritional anemia, unspecified; D72.810 Lymphocytopenia; M1A.9XX0 Chronic gout, unspecified, without tophus (tophi); I10 Essential (primary) hypertension; E66.9 Obesity, unspecified; F41.9 Anxiety disorder, unspecified; K59.00 Constipation, unspecified; E55.9 Vitamin D deficiency, unspecified; I25.10 Atherosclerotic heart disease of native coronary artery without angina pectoris; K21.9 Gastro-esophageal reflux disease without esophagitis; F32.9 Major depressive disorder, single episode, unspecified; K44.9 Diaphragmatic hernia without obstruction or gangrene; E78.5 Hyperlipidemia, unspecified; F03.90 Unspecified dementia, unspecified severity, without behavioral disturbance, psychotic disturbance, mood disturbance, and anxiety; E11.65 Type 2 diabetes mellitus with hyperglycemia; Z79.4 Long term (current) use of insulin; Z86.010 Personal history of colon polyps; I25.2 Old myocardial infarction; Z79.02 Long term (current) use of antithrombotics/antiplatelets; Z87.891 Personal history of nicotine dependence; Z83.3 Family history of diabetes mellitus; Z80.49 Family history of malignant neoplasm of other genital organs; Z82.49 Family history of ischemic heart disease and other diseases of the circulatory system; Z82.3 Family history of stroke; Z79.899 Other long term (current) drug therapy; Z79.82 Long term (current) use of aspirin; Z88.8 Allergy status to other drugs, medicaments and biological substances; Z68.35 Body mass index [BMI] 35.0-35.9, adult

== ENCOUNTER → 2019-04-10 | Outpatient (CLI) | payer OTHER ==
[~2019-04-10] MED LIST changes: +Carafate1 GM PO; +DOCUSATE SODIU100 M2 PO; +ISORDIL20 MG PO; +LITHIUM CARBON150 MG PO; +NEURONTIN300 MG PO; +PROTONIX40 MG PO; +REGLAN5 MG PO; +VITAMIN D32000 UNI1 PO
== END | disposition home or self-care (01) ==
LOC: MRI 12:45
DX: M48.02 Spinal stenosis, cervical region (principal); M47.812 Spondylosis without myelopathy or radiculopathy, cervical region; M50.221 Other cervical disc displacement at C4-C5 level; R41.89 Other symptoms and signs involving cognitive functions and awareness; R26.9 Unspecified abnormalities of gait and mobility; R20.0 Anesthesia of skin; I10 Essential (primary) hypertension; F03.90 Unspecified dementia, unspecified severity, without behavioral disturbance, psychotic disturbance, mood disturbance, and anxiety; R51 Headache; R41.3 Other amnesia; R41.0 Disorientation, unspecified; R29.6 Repeated falls

== ENCOUNTER → 2019-04-17 | Day surgery (SDC) | payer MEDICARE ==
[~2019-04-17] VITALS: Ht 167.6 cm; Wt 93.0 kg
--- NOTE | ~2019-04-17 | O ---
[place], [place] OPERATIVE NOTE NAME: KENDY KAYE UNIT #: [id number] ROOM: DOCTOR: BRUCE POOL MD BIRTHDATE: [birth year] DOS: 04/17/2019 HISTORY OF PRESENT ILLNESS: A 74-year-old patient who has presented with chief complaint of nonhealing ulcer, dyspepsia, aggressive ulcer therapy, atypical cells and past biopsy. PROCEDURE: Today's procedure part of investigation is panendoscopy plus biopsy. PREMEDICATION: Propofol. SCOPE: Olympus forward-viewing gastroscope Q10 video. REPORT: After putting the patient in left lateral position and application of lubricant to the scope, the scope was introduced. Thereafter, under direct visualization, advanced through the length of esophagus without difficulty. Hiatal hernia was noticed. Gastric pouch was entered at the mid greater curvature. There is a nonhealing ulcer. This was multiple times biopsied after photographic series, proximal antrum also shows hypertrophic folds and evidence of partially healed ulcers. Multiple biopsies obtained. Duodenal bulb, second and third part within normal limit. The patient extubated, tolerated the procedure well. IMPRESSION: Mid gastric pouch nonhealing ulcer, status post biopsy, status post biopsy of hypertrophic fold of the proximal antrum on the lesser curvature site as well, hiatal hernia, ruling out dysplastic cells. Awaiting pathology and reassessment. BRUCE POOL MD CM:OPRECORD:OPERATIVE NOTE 0839 [id number] BRUCE POOL MD 04/17/19 1058 interface
[2019-04-17 07:20] VITALS: BP 110/77
[2019-04-17 08:36] VITALS: BP 136/65
[2019-04-17 08:51] VITALS: BP 125/63
[2019-04-17 09:06] VITALS: BP 125/66
== END | disposition home or self-care (01) ==
LOC: SDC 04-10 09:30
DX: K29.50 Unspecified chronic gastritis without bleeding (principal); K31.89 Other diseases of stomach and duodenum; K44.9 Diaphragmatic hernia without obstruction or gangrene; I25.10 Atherosclerotic heart disease of native coronary artery without angina pectoris; I10 Essential (primary) hypertension; E11.9 Type 2 diabetes mellitus without complications; E78.00 Pure hypercholesterolemia, unspecified; F32.9 Major depressive disorder, single episode, unspecified; F41.9 Anxiety disorder, unspecified; Z82.49 Family history of ischemic heart disease and other diseases of the circulatory system; Z83.3 Family history of diabetes mellitus; Z82.3 Family history of stroke; I25.2 Old myocardial infarction; Z98.890 Other specified postprocedural states; Z79.899 Other long term (current) drug therapy; Z79.84 Long term (current) use of oral hypoglycemic drugs

== ENCOUNTER → 2019-07-24 | Outpatient (CLI) | payer MEDICARE ==
[2019-07-24 16:08] LABS: BUN 24 mg/dl (7-24); CHLORIDE 100 mmol/L (98-107); CREATININE 1.29 mg/dL (0.70-1.30); POTASSIUM 4.6 mmol/L (3.5-5.1); SODIUM 135 mmol/L (136-145)
== END | disposition home or self-care (01) ==
LOC: LAB 15:20
PROVIDERS: Nurse Practitioner Family
DX: E87.5 Hyperkalemia (principal)